=== PATIENT | male | born 1945 ===

== ENCOUNTER → 2017-07-01 | Outpatient (CLI) | payer OTHER | END | disposition home or self-care (01) | LOC: RAD 09:56 | DX: M12.841 Other specific arthropathies, not elsewhere classified, right hand (principal); M19.041 Primary osteoarthritis, right hand ==

== ENCOUNTER 2019-03-04 09:51 | Outpatient (CLI) | payer OTHER | END 2019-03-04 14:37 | disposition home or self-care (01) | LOC: RAD 09:51 | DX: R05 Cough (principal); R07.89 Other chest pain ==